=== PATIENT | female | born 1990 | race Caucasian/White ===

== ENCOUNTER 2018-07-16 09:58 | Emergency (ER) | payer OTHER ==
[~2018-07-16] VITALS: Ht 162.6 cm; Wt 65.9 kg
[~2018-07-16 09:58] MED LIST: CLARITIN 1010 MG/TAB PO; DOXYCYCLINE 10100 MG PO; FLONASEALLERGY NS; MULTI VITAMINS1 TAB PO; NORCO 325 MG-51 TAB PO; PREDNISONE20 MG PO; PRILOSEC 20MG20 MG PO; PROVENTIL0.09 MG/A1 IH; SYNTHROID 0.0.025 MG PO; SYNTHROID0.05 MG/TA PO; SYNTHROID0.088 MG/T PO; SYNTHROID0.2 MG/TAB PO; ZYRTEC 10MG10 MG PO
[2018-07-16 09:59] VITALS: BP 171/73; TEMP 98.2
[2018-07-16 10:11] LABS: COLLECTION METHOD CLEAN CATCH
[2018-07-16] MEDS ORDERED: TRI-LO-ESTARYL1 EACH PO (10:11)
[2018-07-16 10:20] LABS: MUCOUS Present /lpf; PH 6 (5-8); SQUAMOUS EPITHELIAL 0-2 /hpf; URINE APPEARANCE Clear; URINE BACTERIA None Seen /hpf; URINE BILIRUBIN Negative (NEGATIVE); URINE BLOOD Negative (NEGATIVE); URINE COLOR Yellow; URINE GLUCOSE Negative (NEGATIVE); URINE KETONE Negative (NEGATIVE); URINE LEUKOCYTE ESTERASE Negative (NEGATIVE); URINE NITRATE Negative (NEGATIVE); URINE PROTEIN(semi-quant) Negative (NEGATIVE); URINE RBC 0-2 /hpf; URINE UROBILINOGEN Negative (NEGATIVE)
[2018-07-16] MEDS ORDERED: NORCO 325 MG-51 TAB PO (11:17)
[2018-07-16] MEDS ORDERED: FLEXERIL 1010 MG/TAB PO (11:17)
[2018-07-16 11:23] VITALS: PULSE 68
== END 2018-07-16 11:25 | disposition home or self-care (01) ==
LOC: COL.ER 09:58
PROVIDERS: Emergency Medicine
DX: M54.5 Low back pain (principal); F17.210 Nicotine dependence, cigarettes, uncomplicated; Z90.49 Acquired absence of other specified parts of digestive tract

== ENCOUNTER → 2018-08-19 | Outpatient (CLI) | payer OTHER ==
[~2018-08-19] MED LIST changes: +FLEXERIL 1010 MG/TAB PO; +TRI-LO-ESTARYL1 EACH PO
== END ==
LOC: COL.RAD 07:51
DX: M54.5 Low back pain (principal)

== ENCOUNTER 2024-01-09 09:37 | Day surgery (SDC) | payer BC, OTHER ==
[~2024-01-09] VITALS: Ht 160 cm; Wt 62.7 kg
[2024-01-09] VITALS (10 sets, daily range): BP systolic 89–123; BP diastolic 39–79; PULSE 47–85; TEMP 97.8–98.3
[~2024-01-09 09:37] MED LIST changes: +LR 1,000 ML IV SCH
[2024-01-09] MEDS ORDERED: Scopolamine 1 MG Delivered 3-Day PATCH TD SCH (11:00)
[2024-01-09] MEDS ORDERED: LR 1,000 ML IV SCH ×2 (11:00→14:15)
[2024-01-09] MEDS ORDERED: diazePAM 10 MG TAB PO SCH (11:00)
[2024-01-09] MEDS ORDERED: Famotidine 20 MG TAB PO SCH (11:00)
[2024-01-09] MEDS ORDERED: Metoclopramide 10 MG TAB PO SCH (11:00)
[2024-01-09] MEDS ORDERED: TIROSINT125 MC1 PO (11:02)
[2024-01-09] MEDS ORDERED: VITAMIN D 400400 IU PO (11:03)
[2024-01-09] MEDS ORDERED: fentaNYL 50 MCG/ML 5 ML VIAL ONE (11:38)
[2024-01-09] MEDS ORDERED: Rocuronium 50 MG/5 ML Multi-Dose VIAL ONE (11:38)
[2024-01-09] MEDS ORDERED: Topical Skin Adhesive 1 EACH (1 ML) TOP ONE (12:00)
[2024-01-09] MEDS ORDERED: Lidocaine 2% (20 MG/ML) 20 ML UROJET UR ONE ×2 (12:00)
[2024-01-09] MEDS ORDERED: Ondansetron 4 MG/2 ML VIAL IV PRN ×2 (12:45→14:15)
[2024-01-09] MEDS ORDERED: HYDROmorphone 1 MG/1 ML SYRINGE [PACU/SDC ONLY] IV PRN (12:45)
[2024-01-09] MEDS ORDERED: fentaNYL 50 MCG/ML 1 ML SYRINGE/VIAL [PACU/SDC ONLY] IV PRN (12:45)
[2024-01-09] MEDS ORDERED: droPERidol 2.5 MG/ML 2 ML VIAL IV PRN (12:45)
[2024-01-09] MEDS ORDERED: dexAMETHasone 10 MG/ML VIAL ONE (12:53)
[2024-01-09] MEDS ORDERED: Ondansetron 4 MG/2 ML VIAL ONE (13:19)
[2024-01-09] MEDS ORDERED: Ketorolac 30 MG/ML VIAL ONE (13:19)
[2024-01-09] MEDS ORDERED: oxyCODONE 5 MG TAB PO PRN (14:15)
[2024-01-09] MEDS ORDERED: Naloxone 0.4 MG/ML VIAL IV PRN (14:15)
[2024-01-09] MEDS ORDERED: Acetaminophen 500 MG TAB PO PRN (14:15)
--- NOTE | 2024-01-09 15:01 | NUR ---
PT. TO FLOOR AT 1455. ALERT AND ORIENTED. PT. HYPOTENSIVE BUT STABLE CONDITION. LR BOLUS RUNNING
[2024-01-09] MEDS ORDERED: Ibuprofen 800 MG TAB PO SCH (20:03)
[2024-01-09] MEDS ORDERED: Docusate Sodium 100 MG CAP PO SCH (21:00)
[2024-01-10 00:30] VITALS: BP 103/57; PULSE 49; TEMP 97.8
[2024-01-10 04:00] VITALS: BP 95/49; PULSE 51; TEMP 97.9
--- NOTE | 2024-01-10 04:00 | NUR ---
0400 UNCOMFORTABLE IN BED. WANTS TO GET UP AND MOVE AROUND. UP TO BR AND STEPHENS DCD WITH TOTAL 2250 OUTPUT LAST KATHE. PERICARE DONE. UP IN ROOM ON OWN AND MOE WELL.
[2024-01-10 06:20] VITALS: BP 105/55; PULSE 51; TEMP 97.8
--- NOTE | 2024-01-10 09:20 | NUR ---
DC INSTRUCTIONS REVIEWED. PT AGREES AND UNDERSTANDS.
== END 2024-01-10 09:25 | disposition home or self-care (01) ==
LOC: SDCO 09:37 → OB 15:00 → SDCO 01-10 09:25
DX: N80.9 Endometriosis, unspecified (principal)
CPT/HCPCS: OP; A4314; J0690; J1100; J1885; J2405; J2704; J3010; J7120